=== PATIENT | male | born 1985 | race Caucasian/White ===

== ENCOUNTER 2019-06-06 20:09 | Inpatient (IN) ==
[2019-06-06] MEDS ORDERED: cefTRIAXone SODIUM 1,000 MG in DEXTROSE 5% 50 ML IV STA (20:44)
[2019-06-06] MEDS ORDERED: DOXYCYCLINE HYCLATE 100 MG in DEXTROSE 5% 100 ML IV STA (20:44)
[2019-06-06] MEDS ORDERED: SODIUM CHLORIDE 0.9% 1000ML 1,000 ML IV SCH (20:45)
--- NOTE | 2019-06-06 20:58 | History & Physical Report ---
Date of Service June 06, 2019 Assessment & Plan (1) Cellulitis of left leg: Cellulitis of left thigh/failure of outpatient treatment- Patient had been placed on appropriate oral antibiotics of Keflex and doxycycline on original visit to ED 2 days ago. His infection has significantly progressed beyond the borders marked at that visit. Discontinue Keflex and oral doxycycline. Admit to medical surgical floor on ceftriaxone 1 g IV daily and doxycycline 100 mg IV every 12 hours. Order testing for Lyme disease, ehrlichiosis and anaplasmosis. Patient lives in a house built in the in [place]. He does have knowledge of spiders nests in his house. Present on Admission?: Yes (2) Failure of outpatient treatment: See above Present on Admission?: Yes (3) Asthma: Continue inhaler Breo Ellipta 1 inhalation daily as needed Present on Admission?: Yes History of Present Illness Chief Complaint: The patient was initially seen in the ED 2 days ago for a left medial thigh infection. He followed up today with infection extending beyond the initially marked borders. Primary Care Provider: Patrice Le MD The patient is a 33 yo male with a worsening L thigh rash despite appropriate oral antibiotic therapy of keflex and doxycycline. He has no systemic symptoms. He is unaware of any spider or tick bites. His house was built in the . He will be admitted for failure of outpatient therapy. check labs for lyme, ehrlichiosis and anaplasmosis. Start Ceftriaxone IV and doxycycline IV. Allergies Allergy/AdvReac Type Severity Reaction Status Date / Time No Known Allergies Verified 06/06/19 20:49 Home Medications Home Medications Medication Instructions Recorded Confirmed Type cephalexin [Keflex] 500 mg PO Q6H 10 Days #40 cap 06/04/19 06/06/19 Rx doxycycline hyclate 100 mg PO Q12H 10 Days #20 tab 06/04/19 06/06/19 Rx fluticasone furoate-vilanterol 1 inh INHALATION DAILY PRN 06/04/19 06/06/19 History [Breo Ellipta] Past Med/Surg History Medical History History of asthma Social History Preferred Language: Portuguese Communication Ability: Effective Cook Frozen Dessert Required: No Beliefs That Will Affect Care: None Current Living Situation: Spouse Other Information That Helps Us Care for You: No Feels Safe at Home: Yes Safety Concerns: Feels Safe At This Time Smoking Status: Former smoker Smoking End Date: 2015 Hx Alcohol Use: Yes Alcohol type: beer Hx Substance Use: No Review of Systems Review of Systems: The patient denies chest pain, palpitations, shortness of breath, dyspnea on exertion, cough, sore throat, fevers, chills, sweats, weight change, fatigue, nausea, vomiting, diarrhea , constipation, abdominal pain, pelvic pain, blood in urine or stool, dysuria, urinary frequency or urgency, lightheadedness, dizziness, headache, memory loss, loss of consciousness, abnormal bruising or bleeding, imbalance, focal or generalized weakness, numbness or tingling in arms or legs, generalized arthralgias or myalgias, back or neck pain, or night sweats. The review of systems is otherwise negative other than for that already noted above, and at least 10 systems have been reviewed. Physical Exam Physical Exam: The patient is awake, alert and oriented 3, well developed and well nourished, normocephalic and atraumatic, lying in bed and in no acute distress. HEENT--PERRL, EOMI, mucous membranes and oropharynx dry. Neck--supple. No JVD. No bruits. Thyroid normal, trachea midline, no adenopathy. Heart--normal S1 and S2. No murmurs, rubs or gallops. Lungs--clear bilaterally, no respiratory distress, no accessory muscle use. Abdomen--normal bowel sounds and soft. Nontender. Nondistended, no hernias or masses, no organomegaly. Extremities--no cyanosis or clubbing. No edema. There are good distal pulses b/l. Dermatologic--left thigh rash with central darkened area, and surrounding erythematous area extending beyond original marking of 2 days ago. Neurologic--cranial nerves II through XII grossly intact. Rheumatologic--normal range of motion. Psychiatric--normal affect. Results & Data Vital Signs (Past 12 Hours) Vital Signs Temp Pulse Resp BP Pulse Ox 06/06/19 20:12 98.8 F 115 H 20 174/116 H 98 Laboratory Results Laboratory Results WBC 9.14 K/uL (4.8-10.8) 06/06/19 20:52 RBC 5.24 M/uL (4.7-6.1) 06/06/19 20:52 Hgb 15.5 g/dL (14.0-18.0) 06/06/19 20:52 Hct 44.2 % (42-52) 06/06/19 20:52 MCV 84.4 fL (80-100) 06/06/19 20:52 MCH 29.6 pg (25-34) 06/06/19 20:52 MCHC 35.1 g/dL (32-36) 06/06/19 20:52 RDW Std Deviation 39.3 fL (36.4-46.3) 06/06/19 20:52 RDW Coeff of Keke 12.9 % (11.5-14.5) 06/06/19 20:52 Plt Count 182 K/uL (130-400) 06/06/19 20:52 MPV 10.9 fL (7.4-10.4) H 06/06/19 20:52 Immature Gran % (Auto) 0.3 % 06/06/19 20:52 Neut % (Auto) 66.4 % 06/06/19 20:52 Lymph % (Auto) 24.2 % 06/06/19 20:52 Barnwell % (Auto) 7.4 % 06/06/19 20:52 Eos % (Auto) 1.5 % 06/06/19 20:52 Baso % (Auto) 0.2 % 06/06/19 20:52 Immature Gran # (Auto) 0.03 K/uL (0.00-0.02) H 06/06/19 20:52 Neut # (Auto) 6.06 K/uL (1.4-6.5) 06/06/19 20:52 Lymph # (Auto) 2.21 K/uL (1.2-3.4) 06/06/19 20:52 Barnwell # (Auto) 0.68 K/uL (0.11-0.59) H 06/06/19 20:52 Eos # (Auto) 0.14 K/uL (0-0.5) 06/06/19 20:52 Baso # (Auto) 0.02 K/uL (0-0.2) 06/06/19 20:52 Sodium 141 mmol/L (136-145) 06/06/19 20:52 Potassium 3.7 mmol/L (3.5-5.1) 06/06/19 20:52 Chloride 108 mmol/L (98-107) H 06/06/19 20:52 Carbon Dioxide 25 mmol/L (21-32) 06/06/19 20:52 Anion Gap 7.0 (3-11) 06/06/19 20:52 BUN 14 mg/dl (7-18) 06/06/19 20:52 Creatinine 1.08 mg/dl (0.6-1.4) 06/06/19 20:52 Est Cr Clr Drug Dosing 120.7 ml/min 06/06/19 20:52 Est GFR ( Amer) 103.2 06/06/19 20:52 Est GFR (Non-Af Amer) 89.1 06/06/19 20:52 BUN/Creatinine Ratio 12.5 (10-20) 06/06/19 20:52 Glucose 125 mg/dl (70-99) H 06/06/19 20:52 Lactate 1.3 mmol/L (0.4-2.0) 06/06/19 20:52 Calcium 9.6 mg/dl (8.5-10.1) 06/06/19 20:52 Total Bilirubin 0.5 mg/dl (0.2-1) 06/06/19 20:52 AST 22 U/L (15-37) 06/06/19 20:52 ALT 51 U/L (12-78) 06/06/19 20:52 Alkaline Phosphatase 69 U/L (45-117) 06/06/19 20:52 Total Protein 7.8 gm/dl (6.4-8.2) 06/06/19 20:52 Albumin 4.2 gm/dl (3.4-5.0) 06/06/19 20:52 Globulin 3.6 gm/dl (2.5-4.0) 06/06/19 20:52 Albumin/Globulin Ratio 1.2 (0.9-2) 06/06/19 20:52 Specimen Hemolysis 06/06/19 20:52 E.chaffeensis DNA (PCR) Cancelled 06/06/19 20:52 Code Status & VTE Plan Code Status Full code VTE Prophylaxis Plan VTE Prophylaxis will be ordered: Yes PG Care Time/CCT Total # of Minutes Spent Total Time Spent with Patient: Total time spent is greater than 50% in coordination of care (as documented) at patient's floor/unit and/or counseling patient:
[2019-06-06 21:10] LABS: Basophils # (auto) 0.02 K/uL (0-0.2); Basophils % (auto) 0.2 %; Eosinophils # (auto) 0.14 K/uL (0-0.5); Eosinophils % (auto) 1.5 %; Hematocrit (blood only) 44.2 % (42-52); Hemoglobin 15.5 g/dL (14.0-18.0); Immature Granulocytes # (auto) 0.03 K/uL (0.00-0.02); Immature Granulocytes % (auto) 0.3 %; Lymphocytes # (auto) 2.21 K/uL (1.2-3.4); Lymphocytes % (auto) 24.2 %; Mean Corpuscular Hgb Conc 35.1 g/dL (32-36); Mean Corpuscular Volume 84.4 fL (80-100); Mean Platelet Volume 10.9 fL (7.4-10.4); Monocytes # (auto) 0.68 K/uL (0.11-0.59); Monocytes % (auto) 7.4 %; Neutrophils # (auto) 6.06 K/uL (1.4-6.5); Neutrophils % (auto) 66.4 %; Platelet Count 182 K/uL (130-400); RDW Coefficient of Variation 12.9 % (11.5-14.5); RDW Standard Deviation 39.3 fL (36.4-46.3); Red Blood Count 5.24 M/uL (4.7-6.1); White Blood Count 9.14 K/uL (4.8-10.8)
[2019-06-06 21:26] LABS: Albumin Globulin Ratio 1.2 (0.9-2); Albumin Level 4.2 gm/dl (3.4-5.0); BUN Creatinine Ratio 12.5 (10-20); Bilirubin,Total 0.5 mg/dl (0.2-1); Calcium 9.6 mg/dl (8.5-10.1); Creatinine Clr Calc Pharmacy 120.7 ml/min; Est GFR (African American) 103.2; Est GFR (Non-African American) 89.1; Globulin 3.6 gm/dl (2.5-4.0); Potassium 3.7 mmol/L (3.5-5.1); Total Protein 7.8 gm/dl (6.4-8.2)
--- NOTE | 2019-06-06 22:01 | Emergency Department Note ---
History of Present Illness General Chief complaint: Wound Recheck Stated complaint: WOUND RECHECK Time Seen by Provider: 06/06/19 20:25 History of Present Illness Maximum Pain Intensity: 4 This is a 33-year-old male that presents to the emergency department via private vehicle with complaints of "wound recheck". The patient states that he began with a wound on the posterior leg a few days ago and was seen here in the emergency department 2 days ago. He was placed upon Keflex and doxycycline. He has been taking these as previously prescribed. He notes that the redness has now extended beyond the margins initially outlined 2 days ago. He does note minimal fever/chills associated with the arts Festival noting that he is quite involved with this. He does not feel nauseous. 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 Beliefs That Will Affect Care: None Current Living Situation: Spouse Other Information That Helps Us Care for You: No Feels Safe at Home: Yes Safety Concerns: Feels Safe At This Time Smoking Status: Former smoker Smoking End Date: 2015 Hx Alcohol Use: Yes Alcohol type: beer Hx Substance Use: No Review of Systems A total of 10 systems reviewed and were otherwise negative Physical Exam Vital Signs Vital Signs - 24 hr 06/06/19 20:12 Temperature 37.1 C Temperature Source Oral Sepsis Recent Fever Within 48 Hours No Sepsis Action Taken by Nursing No Action Required Pulse Rate 115 H Respiratory Rate 20 Respiratory Effort / Characteristics Non-Labored Spontaneous Respiratory Depth Normal Blood Pressure 174/116 H Blood Pressure Mean 135 Pulse Oximetry 98 Oxygen Delivery Method Room Air VITAL SIGNS - Vital signs and nursing notes were reviewed. Hypertensive, otherwise stable. GENERAL -33-year-old male appearing his stated age who is in no acute distress. Communicates well with provider and answers questions appropriately. SKIN -there is erythema noted to the patient's posterior left leg with evidence of erythema extending beyond the margins initially outlined 2 days ago. There is also a darkened center. No fluctuance. HEAD - NC/AT. EYES - Sclera anicteric. EARS - No deformities of external structures noted on gross examination bilaterally. NOSE - Midline and without cyanosis. No epistaxis or purulent drainage noted. MOUTH/OROPHARYNX - Without perioral cyanosis. LUNGS - Chest wall symmetric without accessory muscle use, intercostals r etractions, or central cyanosis. Normal vesicular breath sounds CTA B/L. No wheezes, rales, or rhonchi appreciated. CARDIAC - RRR with S1/S2. No murmur, rubs, or gallops appreciated. EXTREMITIES - No clubbing or peripheral cyanosis. No pretibial edema present. Skin as above. He is tender overlying the cellulitic regions. No fluctuance per +5/5 strength noted in UE/LE bilaterally. NEUROLOGIC - Cranial nerves II through XII grossly intact. PSYCH - A&O, and cooperates fully with examiner. Pt is very pleasant and interacts well with examiner. Course Administered Medications Discontinued Medications Ceftriaxone Sodium 1,000 mg/ (Dextrose) 60 mls @ 100 mls/hr IV NOW STA; Protocol Stop: 06/06/19 21:19 Last Infusion: 06/06/19 22:21 Dose: 0 mls/hr Documented by: [id number] Admin: 06/06/19 21:45 Dose: 100 mls/hr Documented by: [id number] Sodium Chloride (Nss 1000ml) 1,000 mls @ 999 mls/hr IV .[id number] [email or web address] Stop: 06/06/19 21:45 Last Infusion: 06/06/19 22:55 Dose: 0 mls/hr Documented by: [id number] Admin: 06/06/19 21:41 Dose: 999 mls/hr Documented by: [id number] Doxycycline Hyclate 100 mg/ (Dextrose) 110 mls @ 50 mls/hr IV NOW STA Stop: 06/06/19 22:55 Last Infusion: 06/07/19 00:00 Dose: 0 mls/hr Documented by: [id number] Admin: 06/06/19 21:45 Dose: 50 mls/hr Documented by: [id number] Medical Decision Making Laboratory Data Result diagrams: 06/06/19 20:52 06/06/19 20:52 Lab Results 06/06/19 06/06/19 06/06/19 Range/Units 20:52 20:52 20:52 WBC 9.14 (4.8-10.8) K/uL RBC 5.24 (4.7-6.1) M/uL Hgb 15.5 (14.0-18.0) g/dL Hct 44.2 (42-52) % MCV 84.4 (80-100) fL MCH 29.6 (25-34) pg MCHC 35.1 (32-36) g/dL RDW Std Deviation 39.3 (36.4-46.3) fL RDW Coeff of Keke 12.9 (11.5-14.5) % Plt Count 182 (130-400) K/uL MPV 10.9 H (7.4-10.4) fL Immature Gran % (Auto) 0.3 % Neut % (Auto) 66.4 % Lymph % (Auto) 24.2 % Cameron % (Auto) 7.4 % Eos % (Auto) 1.5 % Baso % (Auto) 0.2 % Immature Gran # (Auto) 0.03 H (0.00-0.02) K/uL Neut # (Auto) 6.06 (1.4-6.5) K/uL Lymph # (Auto) 2.21 (1.2-3.4) K/uL Cameron # (Auto) 0.68 H (0.11-0.59) K/uL Eos # (Auto) 0.14 (0-0.5) K/uL Baso # (Auto) 0.02 (0-0.2) K/uL Sodium 141 (136-145) mmol/L Potassium 3.7 (3.5-5.1) mmol/L Chloride 108 H (98-107) mmol/L Carbon Dioxide 25 (21-32) mmol/L Anion Gap 7.0 (3-11) BUN 14 (7-18) mg/dl Creatinine 1.08 (0.6-1.4) mg/dl Est Cr Clr Drug Dosing 120.7 ml/min Est GFR ( Amer) 103.2 Est GFR (Non-Af Amer) 89.1 BUN/Creatinine Ratio 12.5 (10-20) Glucose 125 H (70-99) mg/dl Lactate (0.4-2.0) mmol/L Calcium 9.6 (8.5-10.1) mg/dl Total Bilirubin 0.5 (0.2-1) mg/dl AST 22 (15-37) U/L ALT 51 (12-78) U/L Alkaline Phosphatase 69 (45-117) U/L Total Protein 7.8 (6.4-8.2) gm/dl Albumin 4.2 (3.4-5.0) gm/dl Globulin 3.6 (2.5-4.0) gm/dl Albumin/Globulin Ratio 1.2 (0.9-2) Specimen Hemolysis E.chaffeensis DNA (PCR) Cancelled 06/06/19 Range/Units 20:52 WBC (4.8-10.8) K/uL RBC (4.7-6.1) M/uL Hgb (14.0-18.0) g/dL Hct (42-52) % MCV (80-100) fL MCH (25-34) pg MCHC (32-36) g/dL RDW Std Deviation (36.4-46.3) fL RDW Coeff of Keke (11.5-14.5) % Plt Count (130-400) K/uL MPV (7.4-10.4) fL Immature Gran % (Auto) % Neut % (Auto) % Lymph % (Auto) % Cameron % (Auto) % Eos % (Auto) % Baso % (Auto) % Immature Gran # (Auto) (0.00-0.02) K/uL Neut # (Auto) (1.4-6.5) K/uL Lymph # (Auto) (1.2-3.4) K/uL Cameron # (Auto) (0.11-0.59) K/uL Eos # (Auto) (0-0.5) K/uL Baso # (Auto) (0-0.2) K/uL Sodium (136-145) mmol/L Potassium (3.5-5.1) mmol/L Chloride (98-107) mmol/L Carbon Dioxide (21-32) mmol/L Anion Gap (3-11) BUN (7-18) mg/dl Creatinine (0.6-1.4) mg/dl Est Cr Clr Drug Dosing ml/min Est GFR ( Amer) Est GFR (Non-Af Amer) BUN/Creatinine Ratio (10-20) Glucose (70-99) mg/dl Lactate 1.3 (0.4-2.0) mmol/L Calcium (8.5-10.1) mg/dl Total Bilirubin (0.2-1) mg/dl AST (15-37) U/L ALT (12-78) U/L Alkaline Phosphatase (45-117) U/L Total Protein (6.4-8.2) gm/dl Albumin (3.4-5.0) gm/dl Globulin (2.5-4.0) gm/dl Albumin/Globulin Ratio (0.9-2) Specimen Hemolysis E.chaffeensis DNA (PCR) MDM Narrative Patient was seen and evaluated as above in room D9. Review was performed of nursing notes and vital signs. After obtaining a thorough history and physical examination the above work up was performed. He presents to us today for recheck of the wound on the posterior left leg. I did have the privilege of caring for this patient 2 days ago and instructed him to return today for wound recheck. Unfortunately, the erythema has extended beyond the margins and it is felt that the wound looks worse than previous. Given that he has been compliant with all medications it is felt that he is better suited for inpatient management despite appropriate outpatient p.o. antibiotics. I did consult the hospitalist who came to bedside. We were in agreement the patient would benefit from inpatient management. Please refer to further documentation regarding his stay. In speaking with the hospitalist, it was recommended to provide IV doxycycline as well as ceftriaxone. These were ordered. Blood cultures were also ordered. These are pending. In review of his labs there is no leukocytosis or concerning anemia. No emergent metabolic abnormality. Anaplasmosis and other tickborne illnesses pending. In the evaluation and treatment of this patient the following differential diagnoses were entertained: Cellulitis, sepsis, Lyme, among others. Impression & Plan Cellulitis of left leg, Failure of outpatient treatment Discharge Plan Visit Data *Final* Discharge Date/Time: 06/06/19 22:24 Chief Complaint: Wound Recheck Stated Complaint: WOUND RECHECK ED Provider: Jared Adler ED Midlevel Provider: Gianni Dalal Discharge Problem: Cellulitis of left leg, Failure of outpatient treatment Patient Disposition: Admitted As Inpatient Condition: Good Discharge Instructions Interventions: ED Discharge Assessment Last Done: 06/06/19 22:24
[2019-06-06] MEDS ORDERED: MAGNESIUM HYDROXIDE SUSP 30 ML UDC PO PRN (22:49)
[2019-06-06] MEDS ORDERED: ALUMINUM/MAGNESIUM SUSP 30 ML UDC PO PRN (22:49)
[2019-06-06] MEDS ORDERED: ONDANSETRON INJ 2 MG/ML 2 ML VIAL IV PRN (22:49)
[2019-06-06] MEDS ORDERED: ACETAMINOPHEN 325 MG TAB PO PRN ×2 (22:49)
[2019-06-07] MEDS ORDERED: cefTRIAXone SODIUM 2,000 MG in DEXTROSE 5% 50 ML IV SCH (12:30)
[2019-06-07] MEDS ORDERED: DOXYCYCLINE HYCLATE 100 MG in DEXTROSE 5% 100 ML IV SCH (12:30)
--- NOTE | 2019-06-07 16:32 | Discharge Summary ---
Date of Service June 07, 2019 Admission HPI Per Admitting Provider The patient is a 33 yo male with a worsening L thigh rash despite appropriate oral antibiotic therapy of keflex and doxycycline. He has no systemic symptoms. He is unaware of any spider or tick bites. His house was built in the . He will be admitted for failure of outpatient therapy. check labs for lyme, ehrlichiosis and anaplasmosis. Start Ceftriaxone IV and doxycycline IV. Admission Exam Per Admitting Provider By Justin Zavaleta MD. The patient is awake, alert and oriented 3, well developed and well nourished, normocephalic and atraumatic, lying in bed and in no acute distress. HEENT--PERRL, EOMI, mucous membranes and oropharynx dry. Neck--supple. No JVD. No bruits. Thyroid normal, trachea midline, no adenopathy. Heart--normal S1 and S2. No murmurs, rubs or gallops. Lungs--clear bilaterally, no respiratory distress, no accessory muscle use. Abdomen--normal bowel sounds and soft. Nontender. Nondistended, no hernias or masses, no organomegaly. Extremities--no cyanosis or clubbing. No edema. There are good distal pulses b/l. Dermatologic--left thigh rash with central darkened area, and surrounding erythematous area extending beyond original marking of 2 days ago. Neurologic--cranial nerves II through XII grossly intact. Rheumatologic--normal range of motion. Psychiatric--normal affect. Principal Diagnosis Left thigh cellulitis Discharge Exam On day of discharge, 06/07/19: completed by Thalia Covarrubias PA-C General: awake, alert, no apparent distress Head: Normocephalic, atraumatic ENT: PERRL, EOMI, no pharyngeal exudate, mucous membranes moist Chest: Clear to auscultation, on room air, no adventitious breath sounds Cardiac: Regular rate and rhythm, no murmur, no JVD, normal peripheral pulses, good capillary refill Abdominal: NABS x 4 quadrants, soft, nontender to palpation, no rebound, guarding or tenderness Extremities: + Left thigh with minimal dull erythema surrounding the area which was initially affected, much smaller area affected than the skin marker outline, no edema or warmth. Otherwise normal inspection, no peripheral edema or erythema, calfs nontender to palpation Psych: Normal mood and affect Neuro: AAO x 3, strength intact bilaterally and related 5/5, no motor deficits, speech is clear, no peripheral sensory deficits Discharge Data Allergies Allergy/AdvReac Type Severity Reaction Status Date / Time No Known Allergies Verified 06/06/19 20:49 Consultations 06/06/19 20:45 ED Decision to Admit Stat 06/06/19 22:49 Consult Case Management - Discharge Planning Routine Hospital Course (1) Cellulitis of left leg: Cellulitis of left thigh/failure of outpatient treatment- - Patient had been placed on appropriate oral antibiotics of Keflex and doxycycline on original visit to ED on 06/05/19. - His infection had significantly progressed beyond the borders marked at that visit at the time of admission, but significantly improved with administration of IV rocephin and doxycycline while hospitalized. - testing for Lyme disease, ehrlichiosis and anaplasmosis was completed; lyme's IgM/IgG were negative; other tick-borne titers were pending at discharge. However low suspicion for tick-borne infection. - Discharged with doxyclycline 100 mg PO BID x 7 days and cefdinir 300 mg Q12H x 7 more days. (2) Failure of outpatient treatment: See above (3) Asthma: Continue inhaler Breo Ellipta 1 inhalation daily as needed Total Time Total Time Spent Total Time Spent (In Minutes): > 30 minutes Discharge Plan Discharge Items Patient Disposition: Home - Self-Care Reason For Visit: LEFT THIGH CELLULITIS,FAILURE OF OUTPATIENT THERA Discharge Diagnosis: Left thigh cellulitis Condition: Good Discharge Goals: Decrease discomfort and Improve function Activity: Resume your previous activity Lifting: Gradually increase as tolerated Bathing: No limitations Sexual Activity: When tolerated Exercise/Sports: As tolerated Driving/Machine Use: No limitations Non-emergency contact: Primary Care Provider Call non-emergency contact if: you have any medication questions, your symptoms worsen, your pain is not controlled and your temperature is above 100.5 Follow-up/Referrals: Patrice Le MD [Primary Care Provider] - 06/09/19 11:00 am (Please, follow up at Dr. Le's office with his associate, Taylor WADSWORTH, on FridayJune 09 at 11:00 am. *If you need to change this appointment, call their office at [phone].) Diet: Regular Addtl Provider Instructions: You were admitted to [facility] due to left thigh cellulitis and diagnosed with the same. During your stay here you were treated with supportive care, medications including intravenous antibiotics and your symptoms improved. Imaging studies which were completed include venous doppler of the left leg, and were normal. Medications: Continue taking you medications as prescribed Continue taking doxycycline 100 mg BID x 7 days - you may use the rest of the prescription you already have at home. Continue taking cefdinir 300 mg Q12H x 7 days Appointments: Follow up with PCP within 1 week, an appointment has been requested for you. Prescriptions: New cefdinir 300 mg capsule 300 mg PO BID Qty: 14 RF: 0 Continued Breo Ellipta 100-25 mcg/dose blister with device 1 inh inhalation DAILY PRN (Reason: WINTER RESP. DIFFICULTIES) RF: 0 doxycycline hyclate 100 mg tablet 100 mg PO Q12H 10 Days Qty: 20 RF: 0 Discontinued cephalexin [Keflex] 500 mg capsule 500 mg PO Q6H 10 Days Qty: 40 RF: 0 Stand-Alone Forms: My [facility], Work/School Release (Inpt) Discharge Orders: Discharge Order (Routine); Ordered 06/07/19 Ordered By: Shasta Covarrubias Admission Data Admit Date/Time: 06/06/19 20:53 Attending Provider: Justin Zavaleta Admit Provider: Justin Zavaleta Primary Care Provider: Patrice Le Other Providers: Justin Zavaleta Service: Medical Other Interventions: Discharge Summary Assessment (RN) Last Done: 06/07/19 16:48 Pending Studies at Discharge: Yes (Lymes, erlichiosis, and anaplasmosis serology) DC Date/Time DO NOT enter until pt leaves facility: 06/07/19 17:01 Supervising Physician Co-Signing Physician Notes Attending Attestation and Discharge Note: Pt seen/examined, chart reviewed, discharge care plan d/w GAMALIEL Covarrubias. I agree w/ the howard components of her d/c documentation. 33yo male w/ history of asthma who presented with LLE cellulitis that began last week. Cellulitis was on posterior leg just superior to popliteal fossa. Took about 2 days of keflex/doxycycline as outpatient but cellulitis progressed by the night of admission. Had rapid improvement with IV rocephin/doxycycline following admission. Cellulitis receding from previously placed demarkation lines. Discharge exam - gen - NAD heart - RRR s1 s2 lungs - CTA b/l skin - left leg, posterior - about 3cm in height by 6-7cm in width area of resolving cellulitis superior to the popliteal fossa; no abscess; no warmth; no weeping or drainage; erythema is pink/mildly erythematous but not bright red; the area of cellulitis has clearly receded from previously placed demarkation lines (at least by 1cm) Imp: LLE cellulitis - improving Plan: d/c home on PO omnicef for typical pathogens and doxycycline for MRSA coverage x 7 days each. f/u PCP in 48 hours for recheck Eduardo Tellez MD
[2019-06-10 03:43] LABS: Anaplasma phagocytophila IgM <1:20 (<1:20); Ehrlichia chaff DNA Bld Not Detected (Not Detected); Ehrlichia chaff IgG Ab <1:64 (<1:64); Ehrlichia chaff IgM Ab <1:20 (<1:20)
== END 2019-06-07 17:01 | disposition home or self-care (01) | DRG 603 ==
LOC: ED 20:09 → 4W 20:53